=== PATIENT | male | born 1980 | race Caucasian/White ===

== ENCOUNTER 2019-01-02 18:29 | Emergency (ER) | payer BC ==
[2019-01-02 19:17] VITALS: BP 128/66
--- NOTE | 2019-01-02 19:39 | UC ---
Complaint Male HPI - HPI Summary HPI Summary: 38-year-old male comes in with a chief complaint of burning with urination. Started several weeks ago. The burning is become more intense over time. He does not is some white discharge early in urination. Denies any suprapubic pain or flank pain or fevers or chills. No complaint of testicular pain but is does say there is some tenderness in the scrotum. - History of Current Complaint Chief Complaint: UCGI Stated Complaint: URINARY COMPLAINT Time Seen by Provider: 01/02/19 19:12 Pain Intensity: 0 - Allergies/Home Medications Allergies/Adverse Reactions: Allergies Allergy/AdvReac Type Severity Reaction Status Date / Time No Known Allergies Allergy Verified 01/02/19 19:17 PMH/Surg Hx/FS Hx/Imm Hx Previously Healthy: Yes - Surgical History Surgical History: None - Family History Known Family History: Positive: Non-Contributory - Social History Alcohol Use: Occasionally Substance Use Type: None Smoking Status (MU): Never Smoked Tobacco Review of Systems All Other Systems Reviewed And Are Negative: Yes Constitutional: Positive: Negative Skin: Positive: Negative Eyes: Positive: Negative ENT: Positive: Negative Respiratory: Positive: Negative Cardiovascular: Positive: Negative Gastrointestinal: Positive: Negative Genitourinary: Positive: Dysuria, Vaginal/Penile Burning, Vaginal/Penile Itching , Vaginal/Penile Discharge Motor: Positive: Negative Neurovascular: Positive: Negative Musculoskeletal: Positive: Negative Neurological: Positive: Negative Psychological: Positive: Negative Is Patient Immunocompromised?: No Physical Exam Triage Information Reviewed: Yes Appearance: Well-Appearing, No Pain Distress, Well-Nourished Vital Signs: Initial Vital Signs Temp 98.4 F 01/02/19 19:13 Pulse 73 01/02/19 19:13 Resp 16 01/02/19 19:13 BP 128/66 01/02/19 19:13 Pulse Ox 100 01/02/19 19:13 Vital Signs Reviewed: Yes Eye Exam: Normal Eyes: Positive: Conjunctiva Clear Neck: Positive: Supple Respiratory: Positive: Lungs clear, Normal breath sounds, No respiratory distress Cardiovascular: Positive: RRR Abdomen Description: Positive: Nontender. Negative: CVA Tenderness (R), CVA Tenderness (L) Male Genital Exam: Positive: Urethral Discharge - Cloudy, Other - On examination testicles are nontender to palpation there is minimal tenderness in the epididymis bilaterally. No skin lesions seen. Musculoskeletal: Positive: Strength Intact, ROM Intact Neurological: Positive: Alert Psychological: Positive: Age Appropriate Behavior Skin Exam: Normal Complaint Male Course/Dx - Course Course Of Treatment: I discussed the urinalysis with the patient. Urine culture is pending as is gonorrhea and chlamydia. We will treat with Bactrim DS by mouth twice a day for 7 days to treat simple cystitis in men. The plan is if the gonorrhea and clear negative and the urine is susceptible to Bactrim and the patient improves with Bactrim there would not necessarily need to be any further follow-up. However if there is any positive results of the gonorrhea chlamydia or Bactrim doesn't cover the bacteria in the urine or if the patient does not improve with antibiotics and he will need follow-up with us here in clinic and potentially with urology. - Differential Dx/Diagnosis Provider Diagnosis: UTI (urinary tract infection) Discharge - Sign-Out/Discharge Documenting (check all that apply): Patient Departure All imaging exams completed and their final reports reviewed: No Studies - Discharge Plan Condition: Stable Disposition: HOME Prescriptions: Sulfamethox/Trimethoprim DS* [Bactrim DS 800/160 TAB*] 1 tab PO BID #12 tab Patient Education Materials: Urinary Tract Infection in Men (ED) Referrals: Thomas Varner MD [Medical Doctor] - Kaz Lopes MD [Medical Doctor] - Additional Instructions: YOU ARE BEING TREATED FOR A BLADDER INFECTION. IF YOU HAVE A PROSTATE INFECTION, YOU MAY NEED TO BE TREATED WITH ANTIBIOTICS FOR A LONGER DURATION. RETURN HERE OR FOLLOW UP WITH UROLOGY IF NOT COMPLETELY IMPROVED. LAB RESULTS ARE PENDING. WE WILL CALL YOU WITH ANY POSITIVE RESULTS. FEEL FREE TO CALL HERE IN 2-3 DAYS FOR FINAL RESULTS. GET REEVALUATED SOONER IF WORSE OR ANY QUESTIONS OR CONCERNS. - Billing Disposition and Condition Condition: STABLE Disposition: Home
[2019-01-02] MEDS ORDERED: Sulfamethox/Trimethoprim DS 800/160* TAB PO ONE (19:46)
[2019-01-04 13:21] LABS: Chlamydia trachomatis NAA Negative (Negative); Neisseria gonorrhoeae (GC) NAA Negative (Negative)
--- NOTE | 2019-01-05 06:52 | UC ---
- Progress Note Progress Note: please notify patient he does not have a UTI stop antibiotic see urologist if still symptomatic Course/Dx - Diagnoses Provider Diagnoses: UTI (urinary tract infection) Discharge ED - Sign-Out/Discharge Documenting (check all that apply): Post-Discharge Follow Up All imaging exams completed and their final reports reviewed: No Studies - Discharge Plan Condition: Stable Disposition: HOME Prescriptions: Sulfamethox/Trimethoprim DS* [Bactrim DS 800/160 TAB*] 1 tab PO BID #12 tab Patient Education Materials: Urinary Tract Infection in Men (ED) Referrals: Thomas Varner MD [Medical Doctor] - Kaz Lopes MD [Medical Doctor] - Additional Instructions: YOU ARE BEING TREATED FOR A BLADDER INFECTION. IF YOU HAVE A PROSTATE INFECTION, YOU MAY NEED TO BE TREATED WITH ANTIBIOTICS FOR A LONGER DURATION. RETURN HERE OR FOLLOW UP WITH UROLOGY IF NOT COMPLETELY IMPROVED. LAB RESULTS ARE PENDING. WE WILL CALL YOU WITH ANY POSITIVE RESULTS. FEEL FREE TO CALL HERE IN 2-3 DAYS FOR FINAL RESULTS. GET REEVALUATED SOONER IF WORSE OR ANY QUESTIONS OR CONCERNS. - Billing Disposition and Condition Condition: STABLE Disposition: Home
== END 2019-01-02 20:24 | disposition home or self-care (01) ==
LOC: MERGE 18:29 → UCCORT 18:29
DX: N39.0 Urinary tract infection, site not specified (principal)
CPT/HCPCS: 81003; 87086; 87491; 87591; 99202; A9270-GY; G0463

== ENCOUNTER 2019-06-28 09:53 | Emergency (ER) | payer BC ==
--- NOTE | 2019-06-28 10:49 | UC ---
FLU HPI - HPI Summary HPI Summary: 38 yo male presents with flu-like symptoms. He tells me that for the last 4 days he has had fever, chills, fatigue, body aches, and dry cough. His daughter was dx'd with the flu late last week and he developed symptoms shortly after. He has been taking theraflu with little relief. Denies SOB, chest pain, abdominal pain, n/v. Did not get a flu shot this year - History of Current Complaint Stated Complaint: FLU SYMPTOMS Time Seen by Provider: 06/28/19 10:49 Hx Obtained From: Patient Onset/Duration: Sudden Onset Severity Currently: Mild Severity Initially: Mild Pain Intensity: 4 Pain Scale Used: 0-10 Numeric - Allergy/Home Medications Allergies/Adverse Reactions: Allergies Allergy/AdvReac Type Severity Reaction Status Date / Time No Known Allergies Allergy Verified 06/28/19 10:54 Home Medications: Home Medications Ibuprofen TAB* [Advil TAB*] 4 tab PO ONCE 06/28/19 [History Confirmed 06/28/19] Pheniramine/P-Eph/Acetaminophn [Theraflu Flu & Sore Throat] 1 dose PO ONCE 06/28 [History Confirmed 06/28/19] PMH/Surg Hx/FS Hx/Imm Hx - Additional Past Medical History Additional PMH: None - Surgical History Surgical History: None - Family History Known Family History: Positive: Non-Contributory - Social History Occupation: Employed Full-time Lives: With Family Alcohol Use: Occasionally Substance Use Type: None Smoking Status (MU): Never Smoked Tobacco Review of Systems All Other Systems Reviewed And Are Negative: No Constitutional: Positive: Fever, Fatigue, Other - Body aches Skin: Positive: Negative Eyes: Positive: Negative ENT: Positive: Negative Respiratory: Positive: Cough Cardiovascular: Positive: Negative Gastrointestinal: Positive: Negative Neurovascular: Positive: Negative Neurological/Mental Status: Positive: Negative Psychological: Positive: Negative Physical Exam - Summary Physical Exam Summary: GENERAL: NAD. WDWN. No pain distress. SKIN: No rashes, sores, lesions, or open wounds. HEENT: Head: AT/NC Eyes: EOM intact. Conjunctiva clear without inflammation or discharge. Ears: Hearing grossly normal. TMs intact, no bulging, erythema, or edema. Nose: Nasal mucosa pink and moist. NTTP maxillary and frontal sinus. Throat: Posterior oropharynx without exudates, erythema, or tonsillar enlargement. Uvula midline. NECK: Supple. Nontender. No lymphadenopathy. CHEST: CTAB. No r/r/w. No accessory muscle use. Breathing comfortably and in no distress. CV: RRR. Pulses intact. Cap refill <2seconds NEURO: Alert. PSYCH: Age appropriate behavior. Triage Information Reviewed: Yes Vital Signs: Vital Signs: Temp Pulse Resp BP Pulse Ox 99.9 F 101 14 127/57 98 06/28/19 10:55 06/28/19 10:55 06/28/19 10:55 06/28/19 10:55 06/28/19 10:55 Laboratory Tests 06/28/19 10:58 Influenza B (Rapid) Positive H Vital Signs Reviewed: Yes Flu Course/Dx - Course Course Of Treatment: POC flu positive. - Differential Dx/Diagnosis Provider Diagnosis: Influenza Discharge ED - Sign-Out/Discharge Documenting (check all that apply): Patient Departure All imaging exams completed and their final reports reviewed: No Studies - Discharge Plan Condition: Stable Disposition: HOME Prescriptions: Oseltamivir CAP* [Tamiflu CAP*] 75 mg PO DAILY #7 cap Patient Education Materials: Influenza (ED) Referrals: No Primary Care Phys,NOPCP [Primary Care Provider] - Additional Instructions: Most people with the flu recover within one to two weeks without treatment. However, serious complications of the flu can occur. Go to the ER immediately if you: -- You feel short of breath or have trouble breathing -- You have pain or pressure in your chest or stomach -- You have signs of being dehydrated, such as dizziness when standing or not passing urine -- You feel confused -- You cannot stop vomiting or you cannot drink enough fluids There are several groups of people who are at increased risk for flu complications. These include women, young children (<5 years of age and especially <2 years of age), people older than 65 years of age, and people with certain diseases such as chronic lung disease (such as asthma), heart disease, diabetes, immunosuppressing conditions (such as HIV infection or transplantation), and some other diseases. Treat symptoms Treating the symptoms of influenza can help you to feel better but will not make the flu go away faster. -- Rest until the flu is fully resolved, especially if the illness has been severe. -- Fluids Drink enough fluids so that you do not become dehydrated. One way to sap data analyst if you are drinking enough is to look at the color of your urine. Normally, urine should be light yellow to nearly colorless. If you are drinking enough, you should pass urine every three to five hours. -- Acetaminophen (sample brand name: Tylenol) can relieve fever, headache, and muscle aches. Aspirin and medicines that include aspirin (eg, bismuth subsalicylate [sample brand name: Pepto-Bismol]) are not recommended for children under 18 because aspirin can lead to a serious disease called Adrienne syndrome. -- Cough medicines are not usually helpful; cough usually resolves without treatment. We do not recommend cough or cold medicine for children under age 6 years. Antiviral treatment Antiviral medicines can be used to treat or prevent influenza. When used as a treatment, the medicine does not eliminate flu symptoms, although it can reduce the severity and duration of symptoms by about one day. Not every person with influenza needs an antiviral medicine, but some people do; the decision is based upon several factors. If you are severely ill and/or have risk factors for developing complications of influenza, you will need an antiviral agent. People who are only mildly ill and have no risk factors for complications usually do not need to be treated with antiviral medication. - Billing Disposition and Condition Condition: STABLE Disposition: Home
[2019-06-28 10:56] VITALS: BP 127/57
[2019-06-28 11:02] LABS: Influenza B Molecular POSITIVE (Negative)
== END 2019-06-28 11:11 | disposition home or self-care (01) ==
LOC: UCCORT 09:53
DX: J11.1 Influenza due to unidentified influenza virus with other respiratory manifestations (principal)
CPT/HCPCS: 99212; G0463